=== PATIENT | female | born 1955 | race Native Hawaiian/Other Pacific Islander ===

== ENCOUNTER 2023-01-15 16:45 | Emergency (ER) | payer OTHER ==
[~2023-01-15] VITALS: Ht 170.2 cm; Wt 90.3 kg
[2023-01-15 18:47] LABS: PLATELET COUNT 282 K/uL (152-353)
[2023-01-15 19:05] LABS: POTASSIUM 4.6 mmol/L (3.6-5.2)
== END 2023-01-15 20:05 | disposition home or self-care (01) ==
LOC: ED 16:45
PROVIDERS: Family Medicine
DX: M62.830 Muscle spasm of back (principal); M48.061 Spinal stenosis, lumbar region without neurogenic claudication; M54.50 Low back pain, unspecified
CPT/HCPCS: 36415; 80053; 81002; 85027; 99283